=== PATIENT | female | born 1995 | race Caucasian/White ===

== ENCOUNTER 2019-10-17 11:20 | Emergency (ER) | payer MEDICAID ==
[~2019-10-17] VITALS: Ht 154.9 cm; Wt 51.3 kg
[2019-10-17 11:32] VITALS: BP 94/64
--- NOTE | 2019-10-17 11:40 | NUR ---
ASSISTED PT TO WAIT IN THE LOBBY. URINE SAMPLE OBTAINED.
--- NOTE | 2019-10-17 12:31 | NUR ---
PT W/C ASSISTED TO ED 1.
--- NOTE | 2019-10-17 12:45 | NUR ---
24 Y/O F C/O VAGINAL BLEEDING WITH CLOTS X1 DAY. PT STATES SHE HAS PAIN 5/10 IN LOWER ABDOMEN. PT DENIES VOMITING/FEVER. THIS IS PT 3RD . PT ABDOMEN IS SOFT, PAIN TO TOUCH TO LOWER ABDOMEN. PT POSITIONED FOR COMFORT, BED LOWERED, SIDE RAIL X1 IN PLACE. NKA
--- NOTE | 2019-10-17 13:02 | NUR ---
IV PLACED, 22 G LT AC, LABS DRAWN.
--- NOTE | 2019-10-17 13:02 | NUR ---
PT AMBULATED TO RESTROOM WITHOUT DIFFICULTY.
--- NOTE | 2019-10-17 13:34 | NUR ---
ULTRASOUND AT BEDSIDE.
[2019-10-17 13:43] LABS: APPEARANCE,URINE BLOODY (CLEAR); BILIRUBIN,URINE NEGATIVE (NEGATIVE); BLOOD, URINE 3+ (NEGATIVE); COLOR,URINE RED (YELLOW); LEUKOCYTE ESTERASE ,URINE 2+ (NEGATIVE); NITRITE, URINE POSITIVE (NEGATIVE); UGLUCOSE NEGATIVE (NEGATIVE)
[2019-10-17 13:51] LABS: BASOPHILS % (AUTO) 0.2 % (0.0-2.0); EOSINOPHILS % (AUTO) 0.1 % (0.0-4.0); HEMATOCRIT 39.8 % (36-48); HEMOGLOBIN 12.8 g/dL (12.0-16.0); LYMPHOCYTES # (AUTO) 0.7 K/uL (2.5-16.5); LYMPHOCYTES % (AUTO) 5.1 % (20.5-51.1); MEAN CORPUSCULAR HEMOGLOBIN 28 pg (27-31); MEAN CORPUSCULAR HGB CONC 32 g/dL (33-37); MEAN CORPUSCULAR VOLUME 86.8 fL (80-94); MONOCYTES # (AUTO) 0.4 K/uL (0.8-1.0); MONOCYTES % (AUTO) 2.8 % (1.7-9.3); NEUTROPHILS # (AUTO) 12.3 K/uL (1.8-7.7); NEUTROPHILS % (AUTO) 91.8 % (42.2-75.2); PLATELET COUNT (AUTO) 222 K/uL (140-450); RED BLOOD CELL COUNT(AUTO) 4.59 MIL/uL (4.20-5.40); RED CELL DISTRIBUTION WIDTH 18.6 % (11.6-13.7); WHITE BLOOD COUNT (AUTO) 13.4 K/uL (4.8-10.8)
[2019-10-17 14:08] LABS: RBC,URINE >20 (MANY) /HPF (0-5); WBC,URINE >25 (MANY) /HPF (0-5)
[2019-10-17 14:25] LABS: PROTHROMBIN TIME 9.4 secs (10.8-13.4)
--- NOTE | 2019-10-17 14:53 | NUR ---
PT VS STABLE, RESTING COMFORTABLY, INFORMED PT WE ARE WAITING FOR TEST RESULTS TO COME IN.
[2019-10-17 16:03] VITALS: BP 99/67
--- NOTE | 2019-10-17 16:03 | NUR ---
Patient discharged with v/s stable. Written and verbal after care instructions given and explained REGARDING ABDOMINAL PAIN AND INCOMPLETE MISCARRIAGE. Patient verbalized understanding. Ambulatory with steady gait. All questions addressed prior to discharge. Advised to follow up with OBGYN PT GIVEN COPY OF LAB AND US RESULTS
== END 2019-10-17 16:03 | disposition home or self-care (01) ==
LOC: MED 11:20
DX: O03.9 Complete or unspecified spontaneous abortion without complication (principal)
CPT/HCPCS: 36415; 76830; 81001; 81025; 84702; 85025; 85610; 85730; 86900; 86901; 87086; 99284; Q0092

== ENCOUNTER 2022-05-10 18:09 | Emergency (ER) | payer MEDICAID, OTHER ==
[~2022-05-10] VITALS: Ht 154.9 cm; Wt 56.7 kg
[2022-05-10 18:15] VITALS: BP 92/53
--- NOTE | 2022-05-10 22:29 | NUR ---
PT BROUGHT TO BED 1 VIA WHEELCHAIR
--- NOTE | 2022-05-10 22:30 | NUR ---
RECEIVED IN BED 1 WITH C/O COVID (+)
--- NOTE | 2022-05-10 22:37 | NUR ---
DR DUBON AT BEDSIDE [facility]
[2022-05-10] MEDS ORDERED: KETOROLAC 30 MG/ML VIAL IVP ONE (22:45)
[2022-05-10] MEDS ORDERED: NACL 0.9% 1,000 ML IV ONE (22:45)
[2022-05-10] MEDS ORDERED: ONDANSETRON 4 MG/2 ML VIAL IVP ONE (22:55)
[2022-05-10] MEDS ORDERED: IBUP-2213 PO (23:49)
[2022-05-10] MEDS ORDERED: ONDA8TAB87 PO (23:49)
[2022-05-10] MEDS ORDERED: NIRM1TAB PO (23:49)
[2022-05-10 23:55] VITALS: BP 104/63
--- NOTE | 2022-05-10 23:55 | NUR ---
Patient discharged with v/s stable. Written and verbal after care instructions given and explained. Patient alert, oriented and verbalized understanding of instructions. Ambulatory with steady gait. All questions addressed prior to discharge. ID band removed. Patient advised to follow up with PMD. Rx of PAXLOVID CO-PACK & ZOFRAN given. Patient educated on indication of medication including possible reaction and side effects. Opportunity to ask questions provided and answered.
== END 2022-05-10 23:55 | disposition home or self-care (01) ==
LOC: MED 18:09
DX: U07.1 COVID-19 (principal); R11.2 Nausea with vomiting, unspecified
CPT/HCPCS: 87426; 96361; 96374; 96375; 99284; J1885; J2405; J7030